=== PATIENT | female | born 1995 | race Caucasian/White ===

== ENCOUNTER → 2017-05-05 | Outpatient (REF) | payer BC | LOC: M LAB REF 17:21 | PROVIDERS: ATTEND Physician Assistant Medical | DX: Z12.4 Encounter for screening for malignant neoplasm of cervix (principal) ==

== ENCOUNTER → 2020-10-21 | Outpatient (REF) | payer OTHER | LOC: M LAB REF 09:53 | PROVIDERS: ATTEND Nurse Practitioner Family | DX: Z12.4 Encounter for screening for malignant neoplasm of cervix (principal) ==

== ENCOUNTER → 2021-10-27 | Outpatient (REF) | payer OTHER ==
[2021-10-27 19:33] LABS: GC DNA AMPLIFICATION NEGATIVE (NEGATIVE)
== END ==
LOC: M LAB REF 17:46
PROVIDERS: ATTEND Nurse Practitioner Family
DX: R30.0 Dysuria (principal)

== ENCOUNTER → 2024-01-06 | Outpatient (CLI) | payer OTHER ==
[~2024-01-06] MED LIST: TOPI-21 PO
== END ==
LOC: M SOG 13:05
PROVIDERS: ATTEND Physician Assistant
DX: M25.532 Pain in left wrist (principal)

== ENCOUNTER 2024-01-11 06:30 | Day surgery (SDC) | payer OTHER ==
[~2024-01-11] VITALS: Ht 162.6 cm; Wt 52.4 kg
[2024-01-11] MEDS: SODIUM BICARBONATE 8.4% INJ 50MEQ 50ML VIAL XX ONE (07:55)
[2024-01-11] MEDS: LIDOCAINE W/EPINEPHRINE 1% 20ML VIAL XX ONE (07:55)
[2024-01-11] MEDS: BACITRACIN OINTMENT 30GM TUBE As Ordered ONE (09:29)
[2024-01-11 09:47] VITALS: BP 115/62; TEMP 98.8; O2SAT 100
== END 2024-01-11 09:59 | disposition home or self-care (01) ==
LOC: M SDC 06:30
PROVIDERS: ATTEND Orthopaedic Surgery Hand Surgery
DX: D22.62 Melanocytic nevi of left upper limb, including shoulder (principal); L90.5 Scar conditions and fibrosis of skin; G43.909 Migraine, unspecified, not intractable, without status migrainosus; Z79.899 Other long term (current) drug therapy

== ENCOUNTER 2024-06-27 05:55 | Day surgery (SDC) | payer BC ==
[~2024-06-27] VITALS: Ht 162.6 cm; Wt 51.3 kg
[2024-06-27] MEDS ORDERED: SODIUM BICARBONATE 8.4% INJ 50MEQ 50ML VIAL XX ONE (06:00)
[2024-06-27] MEDS ORDERED: LIDOCAINE W/EPINEPHRINE 1% 20ML VIAL XX ONE (06:00)
[2024-06-27] MEDS: BACITRACIN OINTMENT 30GM TUBE As Ordered ONE (08:28)
[2024-06-27 08:33] VITALS: BP 117/70; TEMP 98.4; O2SAT 100
== END 2024-06-27 08:50 | disposition home or self-care (01) ==
LOC: M SDC 05:55
PROVIDERS: ATTEND Orthopaedic Surgery Hand Surgery
DX: L90.5 Scar conditions and fibrosis of skin (principal); R51.9 Headache, unspecified; Z79.899 Other long term (current) drug therapy